=== PATIENT | female | born 1995 ===

== ENCOUNTER 2018-01-24 09:49 | Emergency (ER) | payer BC ==
[2018-01-24 09:59] VITALS: BMI 23.4
[2018-01-24 10:03] VITALS: RESP 18
[2018-01-24] MEDS ORDERED: Sodium Chloride 0.9% 1,000 ML IV ONE (10:41)
[2018-01-24] MEDS ORDERED: Sodium Chloride 0.9% 1,000 ML ONE (10:46)
[2018-01-24 11:03] LABS: BASO % 0.7 % (0.0-2.0); EOS # 0.1 K/uL (0.0-0.7); EOS % 2.6 % (0.0-4.0); HEMOGLOBIN 12.5 g/dL (11.0-16.0); LYMPH # 1.6 K/uL (1.0-4.3); LYMPH % 33.5 % (20.0-40.0); MEAN CELL VOLUME 92.7 fL (81.0-99.0); MEAN CORPUSCULAR HEMOGLOBIN 32.2 pg (27.0-31.0); MEAN CORPUSCULAR HGB CONC 34.8 g/dL (33.0-37.0); MEAN PLATELET VOLUME 10.2 fL (7.2-11.7); MONO # 0.3 K/uL (0.0-0.8); MONO % 6.4 % (0.0-10.0); NEUT # 2.7 K/uL (1.8-7.0); NEUT % 56.8 % (50.0-75.0); RBC 3.89 Mil/uL (3.80-5.20); RED CELL DISTRIBUTION WIDTH 13.4 % (11.5-14.5); WHITE BLOOD COUNT 4.8 K/uL (4.8-10.8)
[2018-01-24 11:26] LABS: ALB/GLOB RATIO 1.4 (1.0-2.1); ALBUMIN 4.7 g/dL (3.5-5.0); ALT/SGPT 913 U/L (9-52); AST/SGOT 615 U/L (14-36); BLOOD UREA NITROGEN 10 mg/dL (7-17); CALCIUM 9.9 mg/dl (8.6-10.4); GFR AFRICAN-AMERICAN > 60; GFR NON-AFRICAN AMERICAN > 60; LIPASE 129 U/L (23-300)
[2018-01-24] MEDS ORDERED: Iodixanol 320 MG/ML 100 ML BOTTLE IV ONE (12:35)
--- NOTE | 2018-01-24 12:58 | US ---
Date of service: 01/24/2018 HISTORY: elevated LFT's COMPARISON: None. TECHNIQUE: Sonographic evaluation of the abdomen. FINDINGS: LIVER: Measures 12.8 cm. Normal echogenicity of the liver parenchyma. No mass. No intrahepatic bile duct dilatation. Foci of high attenuation in the liver noted of uncertain etiology may represent calcification or other etiology. GALLBLADDER: Unremarkable. No gallstones. COMMON BILE DUCT: Measures 4.3 mm. No stones. No dilatation. PANCREAS: Unremarkable as visualized. No mass. No ductal dilatation. RIGHT KIDNEY: Measures 10 x 4.8 x 4.9cm. Normal echogenicity. No calculus, mass, or hydronephrosis. LEFT KIDNEY: Measures 10 x 5.2 x 4.9cm. Normal echogenicity. No calculus, mass, or hydronephrosis. SPLEEN: Normal in size and contour. No mass. Possible calcification also noted in the spleen. AORTA: No aneurysmal dilatation. IVC: Unremarkable. OTHER FINDINGS: None. IMPRESSION: Possible punctate calcification in the liver and spleen. If indicated further assessment by CT may be obtained. No evidence of cholelithiasis or cholecystitis.
--- NOTE | 2018-01-24 13:39 | CT ---
Date of service: 01/24/2018 PROCEDURE: CT Abdomen and Pelvis with contrast HISTORY: elevated LFT's COMPARISON: None. TECHNIQUE: Contrast dose: 100 mL Visipaque 320. Axial and reformatted coronal and sagittal CT images of the abdomen and pelvis were obtained after IV contrast administration. Radiation dose: Total exam DLP = 262.82 mGy-cm. This CT exam was performed using one or more of the following dose reduction techniques: Automated exposure control, adjustment of the mA and/or kV according to patient size, and/or use of iterative reconstruction technique. FINDINGS: LOWER THORAX: Unremarkable. LIVER: Punctate calcification noted in the liver with the largest focus seen at the left liver lobe measures cysts millimeter likely represent calcified granuloma. Otherwise the liver demonstrates homogeneous enhancement GALLBLADDER AND BILE DUCTS: Unremarkable. PANCREAS: Unremarkable. No gross lesion or ductal dilatation. SPLEEN: Multiple calcification in the spleen are noted ADRENALS: Unremarkable. No mass. KIDNEYS AND URETERS: Unremarkable. No hydronephrosis. No solid mass. VASCULATURE: Unremarkable. No aortic aneurysm. BOWEL: Unremarkable. No obstruction. No gross mural thickening. APPENDIX: Normal appendix. PERITONEUM: Unremarkable. No free fluid. No free air. LYMPH NODES: Unremarkable. No enlarged lymph nodes. BLADDER: Unremarkable. REPRODUCTIVE: Heterogeneous uterus may contains fibroids. BONES: No acute fracture. OTHER FINDINGS: None. IMPRESSION: Small foci of calcification in the liver and spleen likely represent calcified granuloma. Mild hepatomegaly. No evidence of mass lesion in the liver. No evidence of acute pathology in the abdomen and pelvis.
[2018-01-24 14:11] VITALS: BP 109/63; PULSE 64; TEMP 99; O2SAT 100
--- NOTE | 2018-01-24 14:49 | C.PDOC ---
History Of Present Illness 22 year old female presents to the ED stating her liver function test increased. She reports she was sent to ED by PMD to get a CT scan. She has no physical complaints. She reports she has an US scheduled for tomorrow. She presents with paperwork from PMD. Time Seen by Provider: 01/24/18 10:21 Chief Complaint (Nursing): Abnormal Labs History Per: Patient History/Exam Limitations: no limitations Past Medical History Reviewed: Historical Data, Nursing Documentation, Vital Signs Vital Signs: Last Vital Signs Temp 99.0 F 01/24/18 14:00 Pulse 64 01/24/18 14:00 Resp 18 01/24/18 14:00 BP 109/63 01/24/18 14:00 Pulse Ox 100 01/24/18 18:10 - Medical History PMH: No Chronic Diseases Surgical History: No Surg Hx Family History: States: No Known Family Hx - Social History Hx Alcohol Use: No Hx Substance Use: No Review Of Systems Except As Marked, All Systems Reviewed And Found Negative. Physical Exam - Physical Exam Appears: Non-toxic, No Acute Distress Skin: Warm, Dry Head: Atraumatic, Normacephalic Eye(s): bilateral: Normal Inspection Nose: Normal Oral Mucosa: Moist Neck: Supple Chest: Symmetrical Cardiovascular: Rhythm Regular Respiratory: Normal Breath Sounds, No Rales, No Rhonchi, No Wheezing Gastrointestinal/Abdominal: Soft, No Tenderness Extremity: Normal ROM Neurological/Psych: Oriented x3, Normal Speech Gait: Steady ED Course And Treatment - Laboratory Results Result Diagrams: 01/24/18 10:57 01/24/18 10:57 O2 Sat by Pulse Oximetry: 100 (RA) Pulse Ox Interpretation: Normal - CT Scan/US CT Abd/Pel Other Rad Studies (CT/US): Read By Radiologist, Radiology Report Reviewed CT/US Interpretation: Accession No. : [id number]. Patient Name / ID : PREM ABREU / [id number]. Exam Date : 01/24/2018 12:57:07 ( Approved ). Study Comment : Sex / Age : F / 22Y. Creator : Adriel Sibley MD. Dictator : Adriel Sibley MD. Grounds Maintenance Supervisor : Catalog Librarian : Adriel Sibley MD. Approver2 : Report Date : 01/24/2018 13:37:35. My Comment : . Date of service: 01/24/2018. PROCEDURE: CT Abdomen and Pelvis with contrast. HISTORY: elevated LFT's. COMPARISON: None. TECHNIQUE: Contrast dose: 100 mL Visipaque 320. Axial and reformatted coronal and sagittal CT images of the abdomen and pelvis were obtained after IV contrast administration. Radiation dose: Total exam DLP = 262.82 mGy-cm. This CT exam was performed using one or more of the following dose reduction techniques: Automated exposure control, adjustment of the mA and/or kV according to patient size, and/or use of iterative reconstruction technique. FINDINGS: LOWER THORAX : Unremarkable. LIVER: Punctate calcification noted in the liver with the largest focus seen at the left liver lobe measures cysts millimeter likely represent calcified granuloma. Otherwise the liver demonstrates homogeneous enhancement. GALLBLADDER AND BILE DUCTS: Unremarkable. PANCREAS: Unremarkable. No gross lesion or ductal dilatation. SPLEEN: Multiple calcification in the spleen are noted. ADRENALS: Unremarkable. No mass. KIDNEYS AND URETERS: Unremarkable. No hydronephrosis. No solid mass. VASCULATURE: Unremarkable. No aortic aneurysm. BOWEL: Unremarkable. No obstruction. No gross mural thickening. APPENDIX: Normal appendix. PERITONEUM : Unremarkable. No free fluid. No free air. LYMPH NODES: Unremarkable. No enlarged lymph nodes. BLADDER: Unremarkable. REPRODUCTIVE: Heterogeneous uterus may contains fibroids. BONES: No acute fracture. OTHER FINDINGS: None. IMPRESSION: Small foci of calcification in the liver and spleen likely represent calcified granuloma. Mild hepatomegaly. No evidence of mass lesion in the liver. No evidence of acute pathology in the abdomen and pelvis. US Abdomen Other Rad Studies (CT/US): Read By Radiologist, Radiology Report Reviewed CT/US Interpretation: Accession No. : [id number]. Patient Name / ID : PREM ABREU / [id number]. Exam Date : 01/24/2018 11:17:31 ( Approved ). Study Comment : Sex / Age : F / 22Y. Creator : Adriel Sibley MD. Dictator : Adriel Sibley MD. Grounds Maintenance Supervisor : Catalog Librarian : Adriel Sibley MD. Approver2 : Report Date : 01/24/2018 12:56:49. My Comment : . Date of service: 01/24/2018. HISTORY: elevated LFT's. COMPARISON: None. TECHNIQUE: Sonographic evaluation of the abdomen. FINDINGS: LIVER: Measures 12.8 cm. Normal echogenicity of the liver parenchyma. No mass. No intrahepatic bile duct dilatation. Foci of high attenuation in the liver noted of uncertain etiology may represent calcification or other etiology. GALLBLADDER: Unremarkable. No gallstones. COMMON BILE DUCT: Measures 4.3 mm. No stones. No dilatation. PANCREAS: Unremarkable as visualized. No mass. No ductal dilatation. RIGHT KIDNEY: Measures 10 x 4.8 x 4.9cm. Normal echogenicity. No calculus, mass, or hydronephrosis. LEFT KIDNEY: Measures 10 x 5.2 x 4.9cm. Normal echogenicity. No calculus, mass, or hydronephrosis. SPLEEN: Normal in size and contour. No mass. Possible calcification also noted in the spleen. AORTA: No aneurysmal dilatation. IVC: Unremarkable. OTHER FINDINGS: None. IMPRESSION: Possible punctate calcification in the liver and spleen. If indicated further assessment by CT may be obtained. No evidence of cholelithiasis or cholecystitis. Medical Decision Making Medical Decision Making: Patient explained to go to the US scheduled for tomorrow. Patient given printout of workup to give to PMD. Disposition - Disposition Referrals: Meghana Patel, [Non-Staff] - Disposition: HOME/ ROUTINE Disposition Time: 13:40 Condition: GOOD Additional Instructions: BRADY AMARO, thank you for letting us take care of you today. The emergency medical care you received today was directed at your acute symptoms. If you were prescribed any medication, please fill it and take as directed. It may take several days for your symptoms to resolve. Return to the Emergency Department if your symptoms worsen, do not improve, or if you have any other problems. Please contact your doctor or call one of the physicians/clinics you have been referred to that are listed on the Patient Visit Information form that is included in your discharge packet. Bring any paperwork you were given at discharge with you along with any medications you are taking to your follow up visit. Our treatment cannot replace ongoing medical care by a primary care provider outside of the emergency department. Thank you for allowing the [facility] team to be part of your care today. Please go for the ultrasound tomorrow as scheduled. Follow up with your primary care doctor and GI specialist in 3-4 days for re- evaluation and further management. Instructions: Liver Function Test Forms: [facility] (Maldivian) - Clinical Impression Clinical Impression: Laboratory test result abnormal, Hyperbilirubinemia - Scribe Statement The provider has reviewed the documentation as recorded by the Mika Mchugh All medical record entries made by the Mika were at my direction and personally dictated by me. I have reviewed the chart and agree that the record accurately reflects my personal performance of the history, physical exam, medical decision making, and the department course for this patient. I have also personally directed, reviewed, and agree with the discharge instructions and disposition.
== END 2018-01-24 14:24 | disposition home or self-care (01) ==
LOC: C.ER 09:49
DX: E80.6 Other disorders of bilirubin metabolism (principal)
CPT/HCPCS: 74177; 76700; 80053; 83690; 85025; 96360; 96361; 99283; J7030; Q9967